=== PATIENT | female | born 1960 | race African-American/Black ===

== ENCOUNTER → 2022-08-30 | Outpatient (CLI) | payer MEDICAID ==
[~2022-08-30] VITALS: Ht 170.2 cm; Wt 64.0 kg
[~2022-08-30] MED LIST: ADENOSINE 54 MG in GIVE UN-DILUTED 0 ML IV ONE; AMLO-489 PO; ATEN-60 PO; PANT40T PO
== END | disposition home or self-care (01) ==
LOC: XYW 08:07
PROVIDERS: ATTEND Specialist
DX: R07.9 Chest pain, unspecified (principal)
CPT/HCPCS: 78452; 93017; A9500; J0153